=== PATIENT | male | born 1985 | race Two or more races ===

== ENCOUNTER 2025-04-01 09:09 | Inpatient (IN) | payer MEDICAID, OTHER ==
[~2025-04-01] VITALS: Ht 177.8 cm; Wt 65.7 kg
--- NOTE | 2025-04-01 10:35 | ED.PDOC ---
History of Present Illness HPI Comments 40-year-old male BIBLuis Fernando with the chief complaint of abdominal pain. Reports on having had epigastric pain which radiates to the right upper quadrant associated with nausea and vomiting since 0400 this morning. Denies any other symptoms at this time. Denies chills, fever, /D, SOB, CP. No other associated symptoms, modifiers, recent injuries or sick contacts present at this time. Chief Complaint: Abdominal Pain Time Seen by MD: 10:35 Reviewed Notes: Nurses Notes, Medications, Allergies Allergies: Coded Allergies: NO KNOWN ALLERGIES (Unverified , 04/01/25) Information Source: Patient Mode of Arrival: EMS Severity: Moderate Timing: Hours Duration: Since onset, Hours Prehospital treatment: None Past Medical History PAST MEDICAL HISTORY: Denies Surgical History: Denies all surgeries Family History Family History: Reviewed,noncontributory to illness, Unknown Social History Smoker: Non-Smoker Alcohol: Denies ETOH Use Drugs: Denies Drug Use Lives In: Home Constitutional: denies: chills, diaphoresis, fatigue, fever, malaise, sweats, weakness, others EENTM: denies: blurred vision, double vision, ear bleeding, ear discharge, ear drainage, ear pain, ear ringing, eye pain, eye redness, hearing loss, mouth pain, mouth swelling, nasal discharge, nose bleeding, nose congestion, nose pain, photophobia, tearing, throat pain, throat swelling, voice changes, others Respiratory: denies: cough, hemoptysis, orthopnea, SOB at rest, shortness of breath, SOB with excertion, stridor, wheezing, others Cardiovascular: denies: chest pain, dizzy spells, diaphoresis, Dyspnea on exertion, edema, irregular heart beat, left arm pain, lightheadedness, palpitations, PND, syncope, others Gastrointestinal: reports: abdominal pain, nausea, vomiting; denies: abdomen distended, blood streaked bowels, constipated, diarrhea, dysphagia, difficulty swallowing, hematemesis, melena, poor appetite, poor fluid intake, rectal bleeding, rectal pain, others Genitourinary: denies: burning, dysuria, flank pain, frequency, hematuria, incontinence, penile discharge, penile sore, pain, testicle pain, testicle swelling, urgency, others Neurological: denies: dizziness, fainting, headache, left sided numbness, left sided weakness, numbness, paresthesia, pre-existing deficit, right sided numbness, right sided weakness, seizure, speech problems, tingling, tremors, weakness, others Musculoskeletal: denies: back pain, gout, joint pain, joint swelling, muscle pain, muscle stiffness, neck pain, others Integumetry: denies: bruises, change in color, change in hair/nails, dryness, laceration, lesions, lumps, rash, wounds, others Allergic/Immunocompromised: denies: Difficulty Healing, Frequent Infections, Hives, Itching, others Hematologic/Lymphatic: denies: anemia, blood clots, easy bleeding, easy bruisi ng, swollen glands, others Endocrine: denies: excessive hunger, excessive sweating, excessive thirst, exce ssive urination, flushing, intolerance to cold, intolerance to heat, unexplained weight gain, unexplained weight loss, others Psychiatric: denies: anxiety, bipolar disorder, depression, hopeless, panic disorder, schizophrenia, sleepless, suicidal, others All Other Systems: Reviewed and Negative Physical Exam Exam Comments Epigastric and right upper quadrant tenderness General Appearance: No Apparent Distress, Normal HEENT: Normal ENT Inspection, Pharynx Normal, TMs Normal Neck: Full Range of Motion, Non-Tender, Normal, Normal Inspection Respiratory: Chest Non-Tender, Lungs Clear, No Accessory Muscle Use, No Respiratory Distress, Normal Breath Sounds Cardiovascular: No Edema, No JVD, No Murmur, No Gallop, Normal Peripheral Pulses, Regular Rate/Rhythm Breast Exam: Deferred Gastrointestinal: No Organomegaly, Non Tender, No Pulsatile Mass, Normal Bowel Sounds, Soft Genitalia: Deferred Pelvic: Deferred Rectal: Deferred Extremities: No calf tenderness, Normal capillary refill, Normal inspection, Normal range of motion, Non-tender, No pedal edema Musculoskeletal : Apperance: Normal Neurologic: Alert, price accuracy supervisor II-XII nml as Tested, No Motor Deficits, Normal Affect, Normal Mood, No Sensory Deficits Cerebellar Function: Normal Reflexes: Normal Skin: Dry, Normal Color, Warm Lymphatic: No Adenopathy Was a procedure done? Was a procedure done?: No Differential Dx Considerations may include: Gastroenteritis, colitis, UTI, SBO, acute appendicitis X-Ray, Labs, Meds, VS Vital Signs Date Time Temp Pulse Resp B/P (MAP) Pulse Ox O2 Delivery O2 Flow Rate FiO2 12/14/25 11:44 75 16 100 Room Air 04/01/25 11:44 98.0 75 16 108/59 (75) 100 98.0 04/01/25 11:42 75 17 108/59 04/01/25 10:45 60 18 110/48 04/01/25 09:53 Room Air* 0 21 04/01/25 09:51 98.6 60 12 110/48 (68) 100 98.6 04/01/25 09:33 97.5 69 16 108/62 97 97.5 Lab Test 04/01/25 10:37 04/01/25 10:36 Range/Units White Blood Count 9.7 4.4-10.8 10^3/uL Red Blood Count 4.81 4.5-5.90 10^6/uL Hemoglobin 14.9 13.5-17.5 g/dL Hematocrit 43.7 41.0-53.0 % Mean Corpuscular Volume 90.8 80.0-100.0 fL Mean Corpuscular Hemoglobin 31.1 28.0-32.0 pg Mean Corpuscular Hemoglobin Concent 34.2 32.0-36.0 g/dL Red Cell Distribution Width 12.7 11.8-14.3 % Platelet Count 266 140-450 10^3/uL Mean Platelet Volume 7.1 6.9-10.8 fL Neutrophils (%) (Auto) 88.1 H 37.0-80.0 % Lymphocytes (%) (Auto) 8.1 L 10.0-50.0 % Monocytes (%) (Auto) 3.6 0.0-12.0 % Eosinophils (%) (Auto) 0.1 0.0-7.0 % Basophils (%) (Auto) 0.1 0.0-2.0 % Neutrophils # (Auto) 8.6 1.6-8.6 10 ^3/uL Lymphocytes # (Auto) 0.8 0.4-5.4 10 ^3/uL Monocytes # (Auto) 0.3 0-1.3 10 ^3/uL Eosinophils # (Auto) 0 0-0.8 10 ^3/uL Basophils # (Auto) 0 0-0.2 10 ^3/uL Nucleated Red Blood Cells 0.0 % Sodium Level 139 136-145 mmol/L Potassium Level 4.0 3.5-5.1 mmol/L Chloride Level 103 98-107 mmol/L Carbon Dioxide Level 26 20-31 mmol/L Anion Gap 10 5-15 Blood Urea Nitrogen 16 9-23 mg/dL Creatinine 0.89 0.700-1.30 mg/dL Glomerular Filtration Rate Calc 111 >90 mL/min BUN/Creatinine Ratio 18.0 10.0-20.0 Serum Glucose 122 H 74-106 mg/dL Calcium Level 9.7 8.7-10.4 mg/dL Total Bilirubin 1.6 H 0.2-1.0 mg/dL Aspartate Amino Transferase (AST) 28 13-40 U/L Alanine Aminotransferase (ALT) 17 7-40 U/L Alkaline Phosphatase 72 46-116 U/L Total Protein 7.3 5.7-8.2 g/dL Albumin 4.3 3.2-4.8 g/dL Lipase 27 12-53 U/L Urine Color Light-yellow Yellow Urine Clarity Clear Clear Urine pH 6.5 5.0-9.0 Urine Specific [place] > 1.050 H 1.001-1.035 Urine Protein Trace H Negative Urine Ketones 1+ H Negative Urine Blood Negative Negative /uL Urine Nitrite Negative Negative Urine Bilirubin Negative Negative Urine Urobilinogen Normal Negative mg/dL Urine Leukocyte Esterase Negative Negative /uL Urine RBC 1 0 - 3 /hpf Urine Microscopic WBC 1 0-3 /HPF Urine Squamous Epithelial Cells None seen <5 /hpf Urine Bacteria Few H None Seen /hpf Urine Glucose Normal Normal mg/dL Current Medications Medications (Trade) Dose Ordered Sig/Biju Route Start Time Stop Time Status Last Admin Sodium Chloride 1,000 ml @ 1,000 mls/hr Q1H ONCE IV 04/01/25 10:30 04/01/25 11:29 DC 04/01/25 10:39 Morphine Sulfate 4 mg ONCE ONCE IV 04/01/25 10:30 04/01/25 10:31 DC 04/01/25 10:45 Ondansetron HCl (Zofran) 4 mg ONCE ONCE IV 04/01/25 10:30 04/01/25 10:31 DC 04/01/25 10:45 Time of 1ST Reevaluation: 11:05 Reevaluation 1ST: Unchanged Patient Education/Counseling: Diagnosis, Treatment, Prognosis Family Education/Counseling: No Family Present SEPSIS Sepsis Screen Date sepsis recognized/suspect: Apr 01, 2025 Time Sepsis recognized/suspect: 0935 Recent Procedure: No (N) On Antibiotic Therapy: No Respiratory Rate >20: No Heart Rate >90: No Temp<36 C (96.8 F) or >38.3 C: No SBP <90 or MAP <65 mmHG: No New Acute Mental Status Change: No Is the patient on CPAP, BIPAP,: No Physician Orders Ct Ab Pel With Iv Con Only (04/01/25 10:24) Vital Signs Date Time Temp Pulse Resp B/P (MAP) Pulse Ox O2 Delivery O2 Flow Rate FiO2 04/01/25 11:44 75 16 100 Room Air 04/01/25 11:44 98.0 75 16 108/59 (75) 100 98.0 04/01/25 11:42 75 17 108/59 04/01/25 10:45 60 18 110/48 04/01/25 09:53 Room Air* 0 21 04/01/25 09:51 98.6 60 12 110/48 (68) 100 98.6 04/01/25 09:33 97.5 69 16 108/62 97 97.5 Laboratory Tests Test 04/01/25 10:37 White Blood Count 9.7 10^3/uL (4.4-10.8) Medications Medications Dose Ordered Sig/Biju Route Start Time Stop Time Status Last Admin Dose Admin Morphine Sulfate 4 mg ONCE ONCE IV 04/01/25 10:30 04/01/25 10:31 DC 04/01/25 10:45 Ondansetron HCl 4 mg ONCE ONCE IV 04/01/25 10:30 04/01/25 10:31 DC 04/01/25 10:45 Sodium Chloride 1,000 ml @ 1,000 mls/hr Q1H ONCE IV 04/01/25 10:30 04/01/25 11:29 DC 04/01/25 10:39 Departure 1 Departure Time of Disposition: 13:42 (Patient presented with abdominal pain that was concerning for possible appendicits, gastritis, cholecystitis, colitis, gastroenteritis, sbo, or orther possible surgical emergency. Data: 1. I ordered and reviewed the result of at least 3 labs including a CBC, BMP, and Urinalysis. 2. I independently interpreted the following tests: CT Abdomen and Pelvis is concerning for benign abdomen .Risk:This patient has a high risk of morbidity due to further diagnostic testing or treatment and may suffer from an acute abdominal process disorder. Workup reveals intractable abdominal pain and patient should be admitted for further workup. and possible expert consultation. ) Impression: Primary Impression: Intractable abdominal pain Disposition: ADMITTED INPATIENT Admit to: Med Surg Condition: Guarded Critical Care Note Critical Care Time?: No Stability Stability form required: No I personally scribed for XAVI COLORADO MD ([email or web address]) on 04/01/25 at 10:35. Electronically submitted by Bryan Middleton ([email or web address]). XAVI COLORADO MD Apr 01, 2025 10:35
[2025-04-01] MEDS: SODIUM CHLORIDE 0.9% 1,000 ML IV ONE (10:39)
[2025-04-01] MEDS: ONDANSETRON HCL 4 MG/2 ML VIAL IV ONE (10:45)
[2025-04-01] MEDS: MORPHINE SULFATE 4 MG/ML SYR/VIAL IV ONE (10:45)
[2025-04-01 11:11] LABS: Alanine Aminotransferase 17 U/L (7-40); Alkaline Phosphatase 72 U/L (46-116); Anion Gap 10 (5-15); BUN/Creatinine Ratio 18.0 (10.0-20.0); Blood Urea Nitrogen 16 mg/dL (9-23); Calcium 9.7 mg/dL (8.7-10.4); Carbon Dioxide 26 mmol/L (20-31); Chloride 103 mmol/L (98-107); Lipase 27 U/L (12-53); Potassium 4.0 mmol/L (3.5-5.1); Sodium 139 mmol/L (136-145); Total Protein 7.3 g/dL (5.7-8.2)
[2025-04-01 11:12] LABS: Albumin 4.3 g/dL (3.2-4.8); Glucose 122 mg/dL (74-106); Hematocrit 43.7 % (41.0-53.0); Hemoglobin 14.9 g/dL (13.5-17.5); Mean Corpuscular Hemoglobin 31.1 pg (28.0-32.0); Mean Corpuscular Volume 90.8 fL (80.0-100.0); Nucleated Red Blood Cells % 0.0 %
[2025-04-01 11:13] LABS: Bilirubin, Total 1.6 mg/dL (0.2-1.0)
[2025-04-01] MEDS: IOHEXOL 300 MG/ML 100ML BOTTLE IJ ONE (11:34)
--- NOTE | 2025-04-01 12:08 | DVH ---
CLINICAL INFORMATION: Abdominal pain. TECHNIQUE: Axial CT images of the abdomen and pelvis were obtained after the uneventful administration of 100 mL Omnipaque 300 IV contrast. Coronal and sagittal reformatted images were obtained, reviewed, and stored. All CT scans at this medical facility are performed using dose modulation techniques as appropriate to a performed exam including the following: Automated exposure control was utilized; adjustment of the MA and/or KV according to patient size; and use of iterative reconstruction technique. CTDIvol = 5.24 mGy DLP = 299.72 mGy-cm COMPARISON: None FINDINGS: Motion artifact limits evaluation. Lung bases: Lung bases are clear. Liver: Hepatic steatosis. Biliary: No calcified gallstones or biliary ductal dilatation. Spleen: Unremarkable. Pancreas: Unremarkable. No inflammatory changes, ductal dilatation, or mass identified. Adrenal glands: Unremarkable. No mass. Kidneys: No hydronephrosis or mass. Aorta/Vascular: No aneurysm or significant calcification. Lymph Nodes: No mass or lymphadenopathy. Bowel/mesentery: No small bowel obstruction. No free air or free fluid. Appendix is visualized and appears unremarkable. Moderate stool throughout the colon. Pelvic organs: Grossly unremarkable. Bladder: Unremarkable. No mass. Abdominal wall: No mass or hernia. Bones: No acute fracture or focal intraosseous lesion. IMPRESSION: 1. Motion limited study. 2. Moderate stool throughout the colon. 3. No small bowel obstruction. 4. Normal-appearing appendix. 5. Hepatic steatosis.
[2025-04-01 13:09] LABS: Urine Protein, UAD TRACE (Negative)
[2025-04-01] MEDS ORDERED: POLYETHYLENE GLYCOL 17 GM PWDR PO PRN (14:30)
[2025-04-01] MEDS ORDERED: HYDROcodone-ACET 5/325MG TAB PO PRN (14:30)
[2025-04-01] MEDS ORDERED: ONDANSETRON HCL 4 MG/2 ML VIAL IV PRN (14:30)
[2025-04-01] MEDS ORDERED: ACETAMINOPHEN 325 MG TAB PO PRN (14:30)
--- NOTE | 2025-04-01 14:39 | DVHHP2 ---
History of Present Illness Reason for Visit: Abdominal pain History of Present Illness The patient is a 40-year-old male with no significant past medical history who presents to the emergency department with epigastric abdominal pain that began early this morning. The pain is associated with one episode of vomiting. He denies fever, hematemesis, diarrhea, constipation, melena, or prior similar episodes. In the ED, CT of abdomen and pelvis demonstrate moderate stool burden throughout the colon and hepatic steatosis. Laboratory study revealed a mildly elevated total bili of 1.6 mg/dL. Past Medical History Denies Past Surgical History Denies Family History Reviewed, non-contributory to the management of this case. Past Social History The patient lives at home, denies smoking, alcohol or illicit drugs abuse. Review of Systems Constitutional: Yes: Malaise; No: Fever, Chills, Sweats, Weakness, Other Eyes: No: Pain, Vision change, Conjunctivae inflammation, Eyelid inflammation, Other, Redness ENT: No: Ear pain, Ear discharge, Nose pain, Nose discharge, Nose congestion, Mouth pain, Mouth swelling, Throat pain, Throat swelling, Other Respiratory: No: Cough, Dry, Shortness of breath, SOB with excertion, Wheezing, Hemoptysis, Pleuritic Pain, Sputum, Wheezing, Other Cardiovascular: No: Chest Pain, Palpitations, Orthopnea, Paroxysmal Noc. Dyspnea, Edema, Lt Headedness, Other Gastrointestinal: Nausea, Vomiting, Abdominal Pain; No: Diarrhea, Constipation, Melena, Hematochezia, Other Genitourinary: No Dysuria, No Frequency, No Incontinence, No Hematuria, No Retention, No Other Musculoskeletal: No: other, neck pain, shoulder pain, arm pain, back pain, hand pain, leg pain, foot pain Skin: No: Rash, Lesions, Jaundice, Bruising, Other Neurological: No: Weakness, Numbness, Incoordination, Change in speech, Confusion, Seizures, Other Allergies: Coded Allergies: NO KNOWN ALLERGIES (Unverified , 04/01/25) Exam Vital Signs Vital Signs Date Time Temp Pulse Resp B/P (MAP) Pulse Ox O2 Delivery O2 Flow Rate FiO2 04/01/25 11:44 75 16 100 Room Air 04/01/25 11:44 98.0 108/59 (75) 98.0 04/01/25 09:53 0 21 General Appearance: Alert, Oriented X3, mild distress HEENT: Atraumatic, PERRLA, EOMI Respiratory: Clear to auscultation, Normal air movement Cardiovascular: Regular rate, Normal S1, Normal S2 Abdominal: Normal bowel sounds, Soft, No tenderness Extremities: No clubbing, No cyanosis Skin: No rashes, No breakdown, No significant lesion Neuro: Normal gait, Normal speech Psych/Mental Status: Mental status NL Labs/Xrays Labs Test 04/01/25 10:37 04/01/25 10:36 Range/Units White Blood Count 9.7 4.4-10.8 10^3/uL Red Blood Count 4.81 4.5-5.90 10^6/uL Hemoglobin 14.9 13.5-17.5 g/dL Hematocrit 43.7 41.0-53.0 % Mean Corpuscular Volume 90.8 80.0-100.0 fL Mean Corpuscular Hemoglobin 31.1 28.0-32.0 pg Mean Corpuscular Hemoglobin Concent 34.2 32.0-36.0 g/dL Red Cell Distribution Width 12.7 11.8-14.3 % Platelet Count 266 140-450 10^3/uL Mean Platelet Volume 7.1 6.9-10.8 fL Neutrophils (%) (Auto) 88.1 H 37.0-80.0 % Lymphocytes (%) (Auto) 8.1 L 10.0-50.0 % Monocytes (%) (Auto) 3.6 0.0-12.0 % Eosinophils (%) (Auto) 0.1 0.0-7.0 % Basophils (%) (Auto) 0.1 0.0-2.0 % Neutrophils # (Auto) 8.6 1.6-8.6 10 ^3/uL Lymphocytes # (Auto) 0.8 0.4-5.4 10 ^3/uL Monocytes # (Auto) 0.3 0-1.3 10 ^3/uL Eosinophils # (Auto) 0 0-0.8 10 ^3/uL Basophils # (Auto) 0 0-0.2 10 ^3/uL Nucleated Red Blood Cells 0.0 % Sodium Level 139 136-145 mmol/L Potassium Level 4.0 3.5-5.1 mmol/L Chloride Level 103 98-107 mmol/L Carbon Dioxide Level 26 20-31 mmol/L Anion Gap 10 5-15 Blood Urea Nitrogen 16 9-23 mg/dL Creatinine 0.89 0.700-1.30 mg/dL Glomerular Filtration Rate Calc 111 >90 mL/min BUN/Creatinine Ratio 18.0 10.0-20.0 Serum Glucose 122 H 74-106 mg/dL Calcium Level 9.7 8.7-10.4 mg/dL Total Bilirubin 1.6 H 0.2-1.0 mg/dL Aspartate Amino Transferase (AST) 28 13-40 U/L Alanine Aminotransferase (ALT) 17 7-40 U/L Alkaline Phosphatase 72 46-116 U/L Total Protein 7.3 5.7-8.2 g/dL Albumin 4.3 3.2-4.8 g/dL Lipase 27 12-53 U/L Urine Color Light-yellow Yellow Urine Clarity Clear Clear Urine pH 6.5 5.0-9.0 Urine Specific [place] > 1.050 H 1.001-1.035 Urine Protein Trace H Negative Urine Ketones 1+ H Negative Urine Blood Negative Negative /uL Urine Nitrite Negative Negative Urine Bilirubin Negative Negative Urine Urobilinogen Normal Negative mg/dL Urine Leukocyte Esterase Negative Negative /uL Urine RBC 1 0 - 3 /hpf Urine Microscopic WBC 1 0-3 /HPF Urine Squamous Epithelial Cells None seen <5 /hpf Urine Bacteria Few H None Seen /hpf Urine Glucose Normal Normal mg/dL PROCEDURE(s): ABPLIV - CT AB PEL WITH IV CON ONLY REASON: abdominal pain ORDER NUMBER(s): [id number], ACCESSION NUMBER(s): [id number] CLINICAL INFORMATION: Abdominal pain. TECHNIQUE: Axial CT images of the abdomen and pelvis were obtained after the uneventful administration of 100 mL Omnipaque 300 IV contrast. Coronal and sagittal reformatted images were obtained, reviewed, and stored. All CT scans at this medical facility are performed using dose modulation techniques as appropriate to a performed exam including the following: Automated exposure control was utilized; adjustment of the MA and/or KV according to patient size; and use of iterative reconstruction technique. CTDIvol = 5.24 mGy DLP = 299.72 mGy-cm COMPARISON: None FINDINGS: Motion artifact limits evaluation. Lung bases: Lung bases are clear. Liver: Hepatic steatosis. Biliary: No calcified gallstones or biliary ductal dilatation. Spleen: Unremarkable. Pancreas: Unremarkable. No inflammatory changes, ductal dilatation, or mass identified. Adrenal glands: Unremarkable. No mass. Kidneys: No hydronephrosis or mass. Aorta/Vascular: No aneurysm or significant calcification. Lymph Nodes: No mass or lymphadenopathy. Bowel/mesentery: No small bowel obstruction. No free air or free fluid. Appendix is visualized and appears unremarkable. Moderate stool throughout the colon. Pelvic organs: Grossly unremarkable. Bladder: Unremarkable. No mass. Abdominal wall: No mass or hernia. Bones: No acute fracture or focal intraosseous lesion. IMPRESSION: 1. Motion limited study. 2. Moderate stool throughout the colon. 3. No small bowel obstruction. 4. Normal-appearing appendix. 5. Hepatic steatosis. SEPSIS Sepsis Screen Date sepsis recognized/suspect: Apr 01, 2025 Time Sepsis recognized/suspect: 934 Recent Procedure: No (N) On Antibiotic Therapy: No Respiratory Rate >20: No Heart Rate >90: No Temp<36 C (96.8 F) or >38.3 C: No SBP <90 or MAP <65 mmHG: No New Acute Mental Status Change: No Is the patient on CPAP, BIPAP,: No Physician Orders Ct Ab Pel With Iv Con Only (04/01/25 10:24) Admit (04/01/25 14:25) Code Status (04/01/25 14:25) Hydrocodone-Acet 5/325mg Tab ([place] 5/32 (04/01/25 14:30) Ondansetron Hcl (Zofran) (04/01/25 14:30) Complete Blood Count (04/02/25 04:00) Comprehensive Metabolic Panel (04/02/25 04:00) Condition: Fair (04/01/25 14:25) Acetaminophen Tablet (Tylenol Tablet) (04/01/25 14:30) Clear Liq Diet (04/01/25 Dinner) Morphine Sulfate Injection (04/01/25 14:30) Polyethylene Glycol 17g Powder (Miralax (04/01/25 14:30) Polyethylene Glycol 17g Powder (Miralax (04/01/25 14:30) Docusate Sodium Capsule (Colace Capsule) (04/01/25 22:00) Docusate Sodium Capsule (Colace Capsule) (04/01/25 14:30) Pantoprazole (Protonix) (04/02/25 10:00) Pantoprazole (Protonix) (04/01/25 14:30) Vital Signs Date Time Temp Pulse Resp B/P (MAP) Pulse Ox O2 Delivery O2 Flow Rate FiO2 04/01/25 11:44 75 16 100 Room Air 04/01/25 11:44 98.0 75 16 108/59 (75) 100 98.0 04/01/25 11:42 75 17 108/59 04/01/25 10:45 60 18 110/48 04/01/25 09:53 Room Air* 0 21 04/01/25 09:51 98.6 60 12 110/48 (68) 100 98.6 04/01/25 09:33 97.5 69 16 108/62 97 97.5 Laboratory Tests Test 04/01/25 10:37 White Blood Count 9.7 10^3/uL (4.4-10.8) Medications Medications Dose Ordered Sig/Biju Route Start Time Stop Time Status Last Admin Dose Admin Morphine Sulfate 4 mg ONCE ONCE IV 04/01/25 10:30 04/01/25 10:31 DC 04/01/25 10:45 4 MG Ondansetron HCl 4 mg ONCE ONCE IV 04/01/25 10:30 04/01/25 10:31 DC 04/01/25 10:45 4 MG Sodium Chloride 1,000 ml @ 1,000 mls/hr Q1H ONCE IV 04/01/25 10:30 04/01/25 11:29 DC 04/01/25 10:39 1,000 MLS/HR Assessment/Plan Assessment/Plan #Acute abdominal pain # nausea and vomiting # constipation # hepatic steatosis # mild hyperbilirubinemia Admit to medical-surgical unit PPI prophylaxis Clear liquid and advance as tolerated, high-fiber diet Initiate bowel regimen--advised hydration and dietary fiber Antiemetics for nausea and vomiting Medical plan discussed with patient and family at the bedside Plan discussed with: Patient My Orders Orders - EDILMA SANTANA SECURITY CHECKER Procedure Category Date Status Time Admit ADMIT 04/01/25 Verified 14:25 Code Status CODE 04/01/25 Verified 14:25 Hydrocodone-Acet PHA 04/01/25 Verified 5/325mg Tab ([place] 14:30 Ondansetron Hcl PHA 04/01/25 Verified (Zofran) 14:30 Complete Blood Count LAB 04/02/25 Verified 04:00 Comprehensive LAB 04/02/25 Verified Metabolic Panel 04:00 Condition: Fair [place] 04/01/25 Verified 14:25 Acetaminophen Tablet PHA 04/01/25 Verified (Tylenol Tablet) 14:30 Clear Liq Diet DIET 04/01/25 Verified Dinner Morphine Sulfate PHA 04/01/25 Verified Injection 14:30 Polyethylene Glycol PHA 04/01/25 Verified 17g Powder (Miralax 14:30 Polyethylene Glycol PHA 04/01/25 Verified 17g Powder (Miralax 14:30 Docusate Sodium PHA 04/01/25 Verified Capsule (Colace 22:00 Docusate Sodium PHA 04/01/25 Verified Capsule (Colace 14:30 Pantoprazole PHA 04/02/25 Verified (Protonix) 10:00 Pantoprazole PHA 04/01/25 Verified (Protonix) 14:30 Date of Service: Apr 01, 2025 Billing Provider: EDILMA SANTANA Common Visit Codes: [id number] INP/OBS CARE (MOD) EDILMA SANTANA Apr 01, 2025 14:39
[2025-04-01] MEDS ORDERED: MORPHINE SULFATE 4 MG/ML SYR/VIAL IV PRN (14:45)
[2025-04-01] MEDS: POLYETHYLENE GLYCOL 17 GM PWDR PO ONE (16:02)
[2025-04-01] MEDS: DOCUSATE SOD 100 MG CAP PO ONE (16:02)
[2025-04-01] MEDS: PANTOPRAZOLE 40 MG/10 ML VIAL INJ IV ONE (16:09)
[2025-04-01 18:22] VITALS: RESP 16; O2SAT 98
[2025-04-01 21:00] VITALS: BP 101/63; PULSE 48; RESP 17; TEMP 98.4; O2SAT 99
[2025-04-01] MEDS: DOCUSATE SOD 100 MG CAP PO SCH (21:21)
[2025-04-02] VITALS (7 sets, daily range): BP systolic 102–129; BP diastolic 42–73; PULSE 52–70; RESP 16–20; TEMP 36.6; O2SAT 94–98
[2025-04-02 09:31] LABS: Hematocrit 40.9 % (41.0-53.0); Hemoglobin 13.9 g/dL (13.5-17.5); Mean Corpuscular Hemoglobin 30.7 pg (28.0-32.0); Mean Corpuscular Volume 90.2 fL (80.0-100.0); Nucleated Red Blood Cells % 0.0 %
[2025-04-02] MEDS: PANTOPRAZOLE 40 MG/10 ML VIAL INJ IV SCH (09:42)
[2025-04-02 09:47] LABS: Alanine Aminotransferase 12 U/L (7-40); Albumin 4.0 g/dL (3.2-4.8); Alkaline Phosphatase 64 U/L (46-116); Anion Gap 9 (5-15); BUN/Creatinine Ratio 7.4 (10.0-20.0); Calcium 9.3 mg/dL (8.7-10.4); Carbon Dioxide 29 mmol/L (20-31); Chloride 104 mmol/L (98-107); Glucose 106 mg/dL (74-106); Potassium 3.7 mmol/L (3.5-5.1); Sodium 142 mmol/L (136-145); Total Protein 6.9 g/dL (5.7-8.2)
[2025-04-02 09:50] LABS: Bilirubin, Total 2.3 mg/dL (0.2-1.0); Blood Urea Nitrogen 7 mg/dL (9-23)
[2025-04-02] MEDS ORDERED: MAALOX PLUS or MAALOX 30 ML GT PRN (11:45)
--- NOTE | 2025-04-02 11:45 | DVHDSRES ---
Discharge Summary Date of Admission Resident Creating Document: MARIA INES BROWN RESIDENT Apr 01, 2025 at 14:25 Date of Discharge: Apr 02, 2025 Labs/Diagnostic Data: Laboratory Results Test 04/02/25 08:19 04/02/25 08:14 04/01/25 10:37 04/01/25 10:36 Vitamin B12 Level 698 pg/mL (211-911) Vitamin D 25-Hydroxy 46.6 ng/mL (30.0-100) Thyroid Stimulating Hormone (TSH) 1.03 uIU/mL (0.55-4.78) White Blood Count 6.0 10^3/uL (4.4-10.8) Red Blood Count 4.54 10^6/uL (4.5-5.90) Hemoglobin 13.9 g/dL (13.5-17.5) Hematocrit 40.9 % (41.0-53.0) Mean Corpuscular Volume 90.2 fL (80.0-100.0) Mean Corpuscular Hemoglobin 30.7 pg (28.0-32.0) Mean Corpuscular Hemoglobin Concent 34.0 g/dL (32.0-36.0) Red Cell Distribution Width 12.7 % (11.8-14.3) Platelet Count 241 10^3/uL (140-450) Mean Platelet Volume 7.1 fL (6.9-10.8) Neutrophils (%) (Auto) 60.6 % (37.0-80.0) Lymphocytes (%) (Auto) 27.8 % (10.0-50.0) Monocytes (%) (Auto) 9.0 % (0.0-12.0) Eosinophils (%) (Auto) 2.2 % (0.0-7.0) Basophils (%) (Auto) 0.4 % (0.0-2.0) Neutrophils # (Auto) 3.6 10 ^3/uL (1.6-8.6) Lymphocytes # (Auto) 1.7 10 ^3/uL (0.4-5.4) Monocytes # (Auto) 0.5 10 ^3/uL (0-1.3) Eosinophils # (Auto) 0.1 10 ^3/uL (0-0.8) Basophils # (Auto) 0 10 ^3/uL (0-0.2) Nucleated Red Blood Cells 0.0 % Sodium Level 142 mmol/L (136-145) Potassium Level 3.7 mmol/L (3.5-5.1) Chloride Level 104 mmol/L (98-107) Carbon Dioxide Level 29 mmol/L (20-31) Anion Gap 9 (5-15) Blood Urea Nitrogen 7 mg/dL (9-23) Creatinine 0.94 mg/dL (0.700-1.30) Glomerular Filtration Rate Calc 105 mL/min (>90) BUN/Creatinine Ratio 7.4 (10.0-20.0) Serum Glucose 106 mg/dL (74-106) Hemoglobin A1c 5.5 % A1C (<5.7) Calcium Level 9.3 mg/dL (8.7-10.4) Total Bilirubin 2.3 mg/dL (0.2-1.0) Aspartate Amino Transferase (AST) 15 U/L (13-40) Alanine Aminotransferase (ALT) 12 U/L (7-40) Alkaline Phosphatase 64 U/L (46-116) Total Protein 6.9 g/dL (5.7-8.2) Albumin 4.0 g/dL (3.2-4.8) Lipase 27 U/L (12-53) Urine Color Light-yellow (Yellow) Urine Clarity Clear (Clear) Urine pH 6.5 (5.0-9.0) Urine Specific [place] > 1.050 (1.001-1.035) Urine Protein Trace (Negative) Urine Ketones 1+ (Negative) Urine Blood Negative /uL (Negative) Urine Nitrite Negative (Negative) Urine Bilirubin Negative (Negative) Urine Urobilinogen Normal mg/dL (Negative) Urine Leukocyte Esterase Negative /uL (Negative) Urine RBC 1 /hpf (0 - 3) Urine Microscopic WBC 1 /HPF (0-3) Urine Squamous Epithelial Cells None seen /hpf (<5) Urine Bacteria Few /hpf (None Seen) Urine Glucose Normal mg/dL (Normal) Other Laboratory Tests 04/02/25 08:14 Brief Hx & Hospital Course: The patient is a 40-year-old male with no significant past medical history who presents to the emergency department with epigastric abdominal pain that began early this morning which is 9/10 intensity, seems gut is twisting, no radiation, no aggravating or relieving factors. Patient denies any similar symptoms before. The pain is associated with one episode of vomiting. He denies fever, hematemesis, diarrhea, constipation, melena, or prior similar episodes. In the ED, CT of abdomen and pelvis demonstrate moderate stool burden throughout the colon and hepatic steatosis. Laboratory study revealed a mildly elevated total bili of 1.6 mg/dL. Past Medical History Denies Past Surgical History Denies Family History Reviewed, non-contributory to the management of this case. Past Social History The patient lives at home, denies smoking, alcohol or illicit drugs abuse. Hospital course: Patient admitted due to intractable abdominal pain secondary to acute dyspepsia. Patient treated conservatively and his symptoms significantly improved. CT abdomen showed moderate stool throughout the colon, no small-bowel obstruction and hepatic steatosis. Patient tolerate diet well and denies any nausea vomiting or abdominal pain. Patient advised to continue Pepcid for dyspepsia and polyethylene glycol for constipation. Increase fiber containing diet. Patient getting maximum benefit during hospitalization, treated both acute and chronic medical condition. Patient is hemodynamically stable for discharge. Time was given to patient and patient verbalized understanding and agreed with the treatment and follow up. Patient was recommended to return the ER if any experience any worsening symptoms not limited to current symptom. Patient discharged home . Medicines sent to pharmacy and recommended to follow up with PCP and outpatient clinic [facility] morning within week after discharge. Physical exam: General Appearance: Alert, Oriented X3, mild distress HEENT: Atraumatic, PERRLA, EOMI Respiratory: Clear to auscultation, Normal air movement Cardiovascular: Regular rate, Normal S1, Normal S2 Abdominal: Normal bowel sounds, Soft, No tenderness Extremities: No clubbing, No cyanosis Skin: No rashes, No breakdown, No significant lesion Neuro: Normal gait, Normal speech Psych/Mental Status: Mental status NL More than 27 minute spent with patient. Discussed with Dr. Banks, patient and nurse. Operations or Procedures ORDERING PHYSICIAN: XAVI COLORADO MD PROCEDURE(s): ABPLIV - CT AB PEL WITH IV CON ONLY REASON: abdominal pain ORDER NUMBER(s): [id number], ACCESSION NUMBER(s): [id number] CLINICAL INFORMATION: Abdominal pain. TECHNIQUE: Axial CT images of the abdomen and pelvis were obtained after the uneventful administration of 100 mL Omnipaque 300 IV contrast. Coronal and sagittal reformatted images were obtained, reviewed, and stored. All CT scans at this medical facility are performed using dose modulation techniques as appropriate to a performed exam including the following: Automated exposure control was utilized; adjustment of the MA and/or KV according to patient size; and use of iterative reconstruction technique. CTDIvol = 5.24 mGy DLP = 299.72 mGy-cm COMPARISON: None FINDINGS: Motion artifact limits evaluation. Lung bases: Lung bases are clear. Liver: Hepatic steatosis. Biliary: No calcified gallstones or biliary ductal dilatation. Spleen: Unremarkable. Pancreas: Unremarkable. No inflammatory changes, ductal dilatation, or mass identified. Adrenal glands: Unremarkable. No mass. Kidneys: No hydronephrosis or mass. Aorta/Vascular: No aneurysm or significant calcification. Lymph Nodes: No mass or lymphadenopathy. Bowel/mesentery: No small bowel obstruction. No free air or free fluid. Appendix is visualized and appears unremarkable. Moderate stool throughout the colon. Pelvic organs: Grossly unremarkable. Bladder: Unremarkable. No mass. Abdominal wall: No mass or hernia. Bones: No acute fracture or focal intraosseous lesion. IMPRESSION: 1. Motion limited study. 2. Moderate stool throughout the colon. 3. No small bowel obstruction. 4. Normal-appearing appendix. 5. Hepatic steatosis. ATED BY: ABRAHAM WELDON DO DICTATED DATE/TIME: 04/01/25 1206 Condition at Discharge: Stable Final Diagnosis/Problems List #Acute abdominal pain due to dyspepsia. # nausea and vomiting # constipation # hepatic steatosis # mild hyperbilirubinemia Discharge Disposition: Home SNF Discharge Reason For Transfer: PCP [facility] Wednesday. Discharge Instruct/Medications No Active Prescriptions or Reported Meds Discharge Statement: "Patient was advised to return to the ER or call 911 if any headaches, dizziness, shortness of breath, chest pain, abdominal pain, bleeding, fevers, or worsening of medical condition. Patient was counseled about treatment plan, medications, possible side effects, patientverbalized understanding. All questions were answered to the best of my ability. This discharge took greater then 30 minutes in planning, reviewing documentation, counseling the patient, and discussing with other team members." ASSESSMENT ASSESSMENT Assessment Visit Coding STANDARD RES Billing Provider: JAVI BANKS MD Date of Service if different f: Apr 02, 2025 Common Visit Codes: 37950-[id number] INP/OBS CARE (HIGH) Secondary Visit Codes: 12524-[id number] CARE PLAN 30 MINUTES MARIA INES BROWN RESIDENT Apr 02, 2025 11:45
[2025-04-02] MEDS ORDERED: FAMO20TA10 PO (15:46)
[2025-04-02] MEDS ORDERED: POLY335015 PO (15:48)
[2025-04-02] MEDS ORDERED: FAMOTIDINE 20 MG TAB PO SCH (22:00)
== END 2025-04-02 18:41 | disposition home or self-care (01) | DRG 243 ==
LOC: ER 09:09 → EDBD 09:09 → OVERFLOW 14:25 → WEST WING 18:07
PROVIDERS: ADMIT Student in an Organized Health Care Education/Training Program; ATTEND Student in an Organized Health Care Education/Training Program
DX: K21.9 Gastro-esophageal reflux disease without esophagitis (principal); E80.6 Other disorders of bilirubin metabolism; K76.0 Fatty (change of) liver, not elsewhere classified; R10.13 Epigastric pain; K59.00 Constipation, unspecified
CPT/HCPCS: 36415; 74177; 80053; 81001; 82306; 82607; 83036; 83690; 84443; 85025; 96361; 96374; 96375; G0378; J2405; J2470